=== PATIENT | male | born 1985 | race Caucasian/White ===

== ENCOUNTER 2016-09-09 23:43 | Emergency (ER) | payer SELFPAY ==
[~2016-09-09] VITALS: Ht 175.3 cm; Wt 81.8 kg
[~2016-09-09 23:43] MED LIST: AMOXICILLIN 50500 MG PO; FLEXERIL 1010 MG/TAB PO; NORCO 325 MG-51 TAB PO; PEN-VEE K500 MG PO
[2016-09-09 23:48] VITALS: BP 143/86; TEMP 98.5
[2016-09-10] MEDS ORDERED: AMOXICILLIN 50500 MG PO (00:18)
[2016-09-10 00:40] VITALS: PULSE 88
== END 2016-09-10 00:40 | disposition home or self-care (01) ==
LOC: COL.ER 23:43
DX: K02.9 Dental caries, unspecified (principal)